=== PATIENT | female | born 1930 | race Caucasian/White ===

== ENCOUNTER → 2017-09-20 | Outpatient (CLI) | payer MEDICARE, BC, OTHER ==
[~2017-09-20] MED LIST: ARIMIDEX PO; ASPIR 8181 MG PO; ATENOLOL 100MG100 MG PO; CITRACAL SOFT1 EACH PO; COZAAR 25 MG TA25 M1 PO; DICLOFENAC SODI25 MG PO; LOVASTATIN 20 M20 MG PO; TUMS CHEWA500 MG/11 PO; ULORIC40 MG PO; VICODIN ES TAB1 EACH PO
== END ==
LOC: M.RAD 13:30
DX: Z12.31 Encounter for screening mammogram for malignant neoplasm of breast (principal); C50.912 Malignant neoplasm of unspecified site of left female breast

== ENCOUNTER 2017-09-28 22:32 | Observation (INO) | payer MEDICARE, BC, OTHER ==
[~2017-09-28] VITALS: Ht 162.6 cm; Wt 86.2 kg
[~2017-09-28 22:32] MED LIST changes: -ARIMIDEX PO; -ASPIR 8181 MG PO; -ATENOLOL 100MG100 MG PO; -CITRACAL SOFT1 EACH PO; -COZAAR 25 MG TA25 M1 PO; -DICLOFENAC SODI25 MG PO; -LOVASTATIN 20 M20 MG PO; -ULORIC40 MG PO
[2017-09-28 22:36] VITALS: BP 187/91
[2017-09-28] MEDS ORDERED: COZAAR 25 MG TA25 M1 PO (22:43)
[2017-09-28] MEDS ORDERED: ULORIC40 MG PO (22:43)
[2017-09-28] MEDS ORDERED: ATENOLOL 100MG100 MG PO (22:43)
[2017-09-28] MEDS ORDERED: DICLOFENAC SODI25 MG PO (22:43)
[2017-09-28] MEDS ORDERED: LOVASTATIN 20 M20 MG PO (22:44)
[2017-09-28] MEDS ORDERED: ASPIR 8181 MG PO (22:44)
[2017-09-28] MEDS ORDERED: CITRACAL SOFT1 EACH PO (22:44)
[2017-09-28] MEDS ORDERED: ARIMIDEX PO (22:44)
[2017-09-28 23:00] LABS: ABSOLUTE BASOPHILS 0.1 thou/uL (0.0-0.2); ABSOLUTE EOSINOPHILS 0.2 thou/uL (0.0-0.7); ABSOLUTE LYMPHOCYTES 2.4 thou/uL (0.8-5.3); ABSOLUTE MONOCYTES 0.7 thou/uL (0.0-1.2); ABSOLUTE NEUTROPHILS 4.6 thou/uL (1.6-8.1); BASOPHILS 1.1 %; HEMATOCRIT 39.7 % (37.0-47.0); HEMOGLOBIN 13.3 gm/dL (12.0-15.0); MCH 34.9 pg (26.0-34.0); MCHC 33.4 g/dL (28.0-37.0); MCV 104.5 fL (80.0-100.0); MONOCYTES 8.9 %; MPV 7.3 fl. (7.2-11.1); NUCLEATED RBCS 0 /100WBC; PLATELET COUNT* 203 thou/uL (150-400); RDW-CV 13.5 % (10.5-14.5); WBC 8.1 thou/uL (4.0-11.0)
[2017-09-28 23:18] LABS: ANION GAP 14 mmol/L (7-16); BUN 51 mg/dL (7-18); CHLORIDE 100 mmol/L (98-107); CO2 24 mmol/L (21-32); CREATININE 2.1 mg/dL (0.6-1.3); GLUCOSE 122 mg/dL (70-99); POTASSIUM 3.7 mmol/L (3.5-5.1); SODIUM 138 mmol/L (136-145)
[2017-09-28 23:25] LABS: ALBUMIN 3.6 g/dL (3.4-5.0); ALKALINE PHOSPHATASE 50 U/L (46-116); MAGNESIUM 2.1 mg/dL (1.8-2.4); SGOT 20 U/L (15-37); SGPT 15 U/L (30-65); TOTAL BILIRUBIN 0.5 mg/dL (<0.1-1.0); TOTAL PROTEIN 7.7 g/dL (6.4-8.2); TROPONIN-I LEVEL <0.06 ng/mL (<0.06)
[2017-09-29] VITALS (7 sets, daily range): BP systolic 128–179; BP diastolic 44–100
[2017-09-29 00:36] LABS: URINE BILIRUBIN NEGATIVE (Negative); URINE BLOOD NEGATIVE (Negative); URINE CLARITY CLEAR; URINE COLOR YELLOW; URINE GLUCOSE-RANDOM NEGATIVE (Negative); URINE KETONES NEGATIVE (Negative); URINE LEUKOCYTES-REFLEX TRACE (Negative); URINE NITRITE-REFLEX NEGATIVE (Negative); URINE PROTEIN NEGATIVE (Negative); URINE SPECIFIC GRAVITY 1.015 (1.005-1.030); URINE UROBILINOGEN 0.2 E.U./dl (0.2-1.0)
[2017-09-29 01:05] LABS: BACTERIA-REFLEX >30 Many /HPF (None Seen); CRYSTALS None Seen /LPF (None Seen); FINE GRANULAR CASTS 0-3 Few /LPF (None Seen); HYALINE CASTS 0-3 Few /LPF (None Seen); MUCUS 4-6 Moderate strn/LPF (None Seen); SQUAMOUS 0-3 Few /LPF (0-3); URINE RBC 3-10 Few /HPF (0-2); WBC CLUMPS Few (None Seen)
--- NOTE | 2017-09-29 02:25 | NUR ---
PATIENT RESTING IN BED, ADMITTED FOR SYNCOPE AND DIZZINESS. ADMITTED TO HAVING A COUPLE OF ETOH DRINKS AND NOT DRINKING MUCH WATER. PATIENT WAS OUTSIDE FOR A BBQ. BPS ELEVATED. IVF STARTED. DENIES PAIN OR DISCOMFORT.
--- NOTE | 2017-09-29 06:25 | NUR ---
PATIENT HAS SLEPT MOST OF THE NIGHT. UP TO THE BR WITH SBA. DENIES DIZZINESS, PAIN OR SOA. SR ON THE MONITOR. CONT. WITH PLAN OF CARE AT THIS TIME.
--- NOTE | 2017-09-29 08:48 | NUR ---
ASSUMED PT. CARE AND RECEIVED REPORT AT 0730. PT A/OX4, VSS, MONITOR ON TRACING TRIGEMENY 1ST. PT. DENIES CURRENT PAIN/SOB. ON RA @ 97%. FULL ASSESSMENT COMPLETED, REFER TO CHARTING. PT. DENIES ANY NAUSEA/DIZZINESS THIS MORNING. NPO FOR CV CONSULT, PT. STATES UNDERSTANDING. FALL PRECAUTIONSIN PLACE, WILL CONTINUE WITH PLAN OF CARE.
--- NOTE | 2017-09-29 10:24 | EKG ---
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 : 1930 Requested By: Janie Josue Order Number: [id number] MD: Artem Jack Measurements Intervals [place] Rate: 82 P: 88 PA: 276 QRS: -37 QRSD: 109 T: 14 QT: 464 QTc: 542 Interpretive Statements Sinus rhythm Ventricular bigeminy Prolonged PA interval Prominent P waves, nondiagnostic Inferior infarct, old Anteroseptal infarct, age indeterminate Compared to ECG 10/01/2009 11:24:06 First degree AV block now present Incomplete right bundle-branch block no longer present Myocardial infarct finding still present Electronically Signed On 09-29-2017 10:24:29 CDT by Artem Jack [email or web address] <ELECTRONICALLY SIGNED> By: Artem Jack MD, [facility] 09/29/17 1024 [id number] Artem Jack MD, [facility] /EPI
--- NOTE | 2017-09-29 10:35 | CON ---
[address] [address] CONSULTATION Name: YORDAN WYNN Room: [address] Viola#: [id number] Admission: 09/29/17 Attend Phys: Melly Interiano Discharge: Date of : 32 Report #: [id number] THIS REPORT FOR: //name// CC: Cleveland Pedroza DATE OF SERVICE: 09/29/2017 REASON FOR CONSULTATION: Syncope. HISTORY OF PRESENT ILLNESS: The patient is an 87-year-old female who was sitting in a chair last evening watching fireworks and then had a syncopal episode, which was followed with nausea and emesis. She presented to the Emergency Room in sinus rhythm with bigeminy and PVCs. This has never really happened before. She denied prodrome symptoms of palpitations, chest discomfort or chest tightness. She denies edema or weight loss or weight gain. She denies febrile illness. Overnight on telemetry, her vital signs have been stable and she has not had any arrhythmias. This morning, her blood pressure is elevated. She denies headaches or blurry vision. This has happened before, but not quite as severe. PAST MEDICAL HISTORY: She has a past medical history of hypertension, hyperlipidemia and cardiac murmur. She is followed by Dr. Cleveland Lemos. ALLERGIES: SHE HAS ALLERGIES TO ALLOPURINOL. HOME MEDICATIONS: Include atenolol 100 mg daily, losartan 25 mg daily, lovastatin 20 mg daily, aspirin and Arimidex. PAST SURGICAL HISTORY: Prior mastectomy. REVIEW OF SYSTEMS: PVD: Denies any history of strokes or TIAs. NEUROLOGIC: Denies headaches, blurry vision or seizures. No numbness in her face, visual changes or slurred speech. CARDIOVASCULAR: No palpitations and no chest discomfort. Positive dyspnea on exertion. No orthopnea and no PND. Positive murmur. ENDOCRINE: [place] [address] CONSULTATION Name: YORDAN WYNN Room: [address] Viola#: [id number] Admission: 09/29/17 Attend Phys: Melly Interiano Discharge: Date of : 31 Report #: [id number] GASTROINTESTINAL: No nausea or vomiting, ulcers, hematemesis or melena. RENAL: No history of kidney failure. HEMATOLOGIC: No history anemia or bleeding disorders. ALLERGIES: SHE HAS ALLERGIES TO ALLOPURINOL. Denies aspirin or contrast allergies. PSYCHIATRIC: No depression or anxiety. SKIN: No rashes. EYES: She does use glasses. EARS, NOSE, THROAT AND MOUTH: Positive decreased hearing. SOCIAL HISTORY: She is . She has one alcoholic beverage per day. PHYSICAL EXAMINATION: VITAL SIGNS: Blood pressure this morning is 179/74, respiratory rate is 16 and pulse is 64. GENERAL: This is a pleasant elderly female. She is alert, oriented, in no apparent distress. NECK: Supple. No jugular venous distention. Carotid upstrokes are normal. I cannot hear bruits. CARDIOVASCULAR: Regular. Faint systolic murmur. There is no rub or gallop. LUNGS: Clear to auscultation. ABDOMEN: Soft and nontender. EXTREMITIES: There is no peripheral edema. Radial pulses are symmetric and equal. NEUROLOGIC: There are no focal deficits. LABORATORY DATA: Electrocardiogram demonstrates a sinus rhythm, frequent PVCs, poor R-wave progression, incomplete right bundle branch block and a left anterior fascicular block. Hemoglobin level is 13.3. Sodium is 138, potassium 3.7, chloride 100, CO2 is 24, BUN is 51 and creatinine is 2.1. GFR is 22. AST is 20 and ALT is 15. Troponin I is 0.06. CK is 37. A CT of the brain showed no acute intracranial process. IMPRESSION: 1. Syncope. I suspect this is probably multifactorial. She may have been bradycardic and/or had a frequent run of PVCs in association with extracellular volume depletion from the heat outside and she does present azotemic. I will continue with telemetry monitoring. We will check an echocardiogram to assess LV function. Neurologically, she seems back to baseline. 2. Extracellular volume depletion. I will continue with IV fluids. 3. Murmur. I have arranged for an echocardiogram. 4. Bradycardia. I will reduce the dosage of her beta zoya, but using more [facility] [address] [place] [address] CONSULTATION Name: YORDAN WYNN Room: [address] Jamil Rod#: [id number] Admission: 09/29/17 Attend Phys: Melly Interiano Discharge: Date of : 32 Report #: [id number] peripheral acting blood pressure drug with her losartan. However, we will need to monitor renal function. <ELECTRONICALLY SIGNED> By: Artem Jack MD, FACC 09/29/17 1035 0954 [id number] Jack MD, FAC /nt
--- NOTE | 2017-09-29 12:18 | NUR ---
Pt having EEG done, will f/u later
--- NOTE | 2017-09-29 13:22 | 2DMMODE ---
[place] [address] 2 D/M-MODE ECHOCARDIOGRAM Name: YORDAN WYNN Room: [address] Jamil Rod#: [id number] Admission: 09/29/17 Attend Phys: Blade Pedroza Discharge: Date of : 32 Date of Service: 09/29/17 1322 Report #: [id number] THIS REPORT FOR: //name// APPROVED REPORT Study performed: 09/29/2017 12:08:57 EXAM: Comprehensive 2D, Doppler, and color-flow Echocardiogram Patient Location: In-Patient Room #: 219 Status: routine BSA: 1.91 HR: 68 bpm BP: 179/74 mmHg Rhythm: NSR Other Information Study Quality: Good Indications CVA/TIA Syncope Echo Enhancing Agent Indication: Rule out Shunt Agent(s) / Amount(s) Used: Agitated Saline 10 cc 2D Dimensions LVEF(%): 60.10 (>50%) IVSd: 13.68 (7-11mm) LVOT Diam: 20.65 (18-24mm) LVDd: 42.45 mm PWd: 10.08 (7-11mm) Ascending Ao: 34.27 (22-36mm) LVDs: 28.98 (25-40mm) Aortic Root: 34.56 mm Fuller's LVEF: 60.10 % Volumes Left Atrial Volume (Systole) LA ESV Index: 43.50 mL/m2 Aortic Valve AoV Peak Milad.: 1.80 m/s AO Peak Gr.: 13.02 mmHg LVOT Max P.45 mmHg AO Mean Gr.: 7.35 mmHg LVOT Mean P.93 mmHg LVOT Max V: 0.93 m/[place] [address] 2 D/M-MODE ECHOCARDIOGRAM Name: YORDAN WYNN Room: [address] Jamil Rod#: [id number] Admission: 09/29/17 Attend Phys: Blade Pedroza Discharge: Date of : 32 Date of Service: 09/29/17 1322 Report #: [id number] AO V2 VTI: 41.70 cm LVOT Mean V: 0.65 m/s MARISSA (VTI): 1.84 cm2 LVOT V1 VTI: 22.94 cm Mitral Valve E/A Ratio: 0.99 MV Decel. Time: 159.54 ms MV E Max Milad.: 0.86 m/s MV PHT: 46.27 ms MVA (PHT): 4.76 cm2 TDI E/Lateral E': 9.56 E/Medial E': 10.75 Medial E' Milad.: 0.08 m/s Lateral E' Milad.: 0.09 m/s Pulmonary Valve PV Peak Milad.: 1.10 m/s PV Peak Gr.: 4.87 mmHg Tricuspid Valve RAP Estimate: 5.00 mmHg TR Peak Gr.: 39.72 mmHg RVSP: 44.72 mmHg PA Pressure: 44.72 mmHg Left Ventricle The left ventricle is normal size. There is normal LV segmental wall motion. There is normal left ventricular wall thickness. Left ventricular systolic function is normal. The left ventricular ejection fraction is within the normal range. LVEF is 55-60%. Grade I - abnormal relaxation pattern. Right Ventricle The right ventricle is normal size. The right ventricular systolic function is normal. Atria Left atrium is moderately dilated. Interatrial septum is intact without evidence of ASD or PFO. The right atrium size is normal. Aortic Valve Aortic valve leaflets are sclerotic with decreased opening. No aortic regurgitation is present. Mild to moderate aortic stenosis. Mitral Valve The mitral valve is normal in structure. Mild to moderate mitral regurgitation. No evidence [place] [address] 2 D/M-MODE ECHOCARDIOGRAM Name: YORDAN WYNN Room: [address] M.R.#: [id number] Admission: 09/29/17 Attend Phys: Blade Pedroza Discharge: Date of : 32 Date of Service: 09/29/17 1322 Report #: [id number] Tricuspid Valve The tricuspid valve is normal in structure. Trace tricuspid regurgitation. Mild pulmonary hypertension. Pulmonic Valve The pulmonary valve is normal in structure. There is no pulmonic valvular regurgitation. Great Vessels The aortic root is normal in size. IVC is normal in size and collapses with >50% inspiration Pericardium There is no pericardial effusion. <Conclusion> LVEF is 55-60%. There is normal LV segmental wall motion. Left atrium is moderately dilated. Grade I - abnormal relaxation pattern. Aortic valve leaflets are sclerotic with decreased opening. Mild to moderate aortic stenosis. No aortic regurgitation is present. Mild to moderate mitral regurgitation. <ELECTRONICALLY SIGNED> By: Artem Jack MD, FACC 09/29/17 132 21 21 Artem Jack MD, FACC /INF
--- NOTE | 2017-09-29 14:09 | NUR ---
Pt is A&O. Resides at home alone. Independent with ADLS, continues to cook and clean. Pt does not drive. Dtr takes Pt to appts and to run errands. Pt uses a cane when out in the community. No hx of HH or SNF. Pt stated that she thinks she will dc to home tomorrow. Following for disposition.
--- NOTE | 2017-09-29 19:01 | NUR ---
PT. STABLE THROUGH OUT SHIFT. NO C/O OF DIZZINESS/NAUSEA TODAY. ALL TESTING COMPLETED PER ORDERS. PT. REMAINS IN IVF'S AND TOLERATING WELL. ANTICIPATE DC TOMORROW. HOURLY ROUNDING COMPLETED THROUGH OUT THE DAY FOR PT. SAFETY.
[2017-09-30 00:30] VITALS: BP 139/59
--- NOTE | 2017-09-30 01:25 | NUR ---
PATIENT RESTING IN BED. CONT. IVF WITHOUT DIFFICULTIES. DENIES PAIN, SOA, OR DISCOMFORT. UP WITH SBA TO THE BR. BED IN LOW POSITION, CALL LIGHT IN REACH. BED ALARM ON. PATIENT CALLS NURSE BEFORE GETTING UP. WILL PROCEED WITH CURRENT PLAN OF CARE AT THIS TIME.
[2017-09-30 04:15] VITALS: BP 146/59
[2017-09-30 04:52] LABS: ABSOLUTE BASOPHILS 0.1 thou/uL (0.0-0.2); ABSOLUTE EOSINOPHILS 0.4 thou/uL (0.0-0.7); ABSOLUTE LYMPHOCYTES 1.9 thou/uL (0.8-5.3); ABSOLUTE MONOCYTES 0.6 thou/uL (0.0-1.2); ABSOLUTE NEUTROPHILS 3.1 thou/uL (1.6-8.1); BASOPHILS 1.2 %; EOSINOPHILS 6.5 %; HEMATOCRIT 33.8 % (37.0-47.0); MCH 35.2 pg (26.0-34.0); MCHC 33.3 g/dL (28.0-37.0); MCV 105.5 fL (80.0-100.0); MONOCYTES 10.3 %; MPV 7.8 fl. (7.2-11.1); NUCLEATED RBCS 0 /100WBC; PLATELET COUNT* 150 thou/uL (150-400); RDW-CV 13.9 % (10.5-14.5)
[2017-09-30 04:58] LABS: HEMOGLOBIN 11.3 gm/dL (12.0-15.0)
[2017-09-30 05:10] LABS: CALCIUM 8.4 mg/dL (8.5-10.1); CREATININE 1.6 mg/dL (0.6-1.3); POTASSIUM 3.5 mmol/L (3.5-5.1)
[2017-09-30 08:00] VITALS: BP 184/77
--- NOTE | 2017-09-30 11:00 | NUR ---
VSS, ASSUMED CARE IN THE AM, ASSESSMENT PERFORMED AND CHARTED, FALL PRECAUTIONS IN PLACE AND CALL LIGHT IN REACH, PT IS UP WITH ONE AND CANE, PT IS TRACING BIGEMINEY C 1D BLOCK ON THE MONITOR, PT DEINES ANY PAIN, PT GOAL IS TO D/C TO HOME ON DAY OF CARE. SHE IS A&O4, AT THIS TIME 1300 I HAVE RECIEVED AND COMPLETED D/C ORDERS FILLED OUT D/C INSTRUCTIONS PROVITED D/C EDUCATIONS AND TOOK OUT IV AND TOOK OFF TELE MONITOR. DENIES ANY QUESTIONS OR CONCERNS AT TIME OF D/C. PT WALKED OUT VIA WHEEL CHAIR BY STAFF TO CAR. HOURLY ROUNDS COMPLETED.
[2017-09-30 12:28] VITALS: BP 158/61
--- NOTE | 2017-10-03 09:40 | EEG ---
[address] [address] EEG STUDY REPORT Name: KINGSLEYYORDAN [address] [id number] Admission: 09/29/17 Attend Phys: Melly Interiano Discharge: 09/30/17 Date of : 31 Report #: [id number] THIS REPORT FOR: //name// CC: Cleveland Pedroza DATE OF SERVICE: 09/29/2017 This patient is being evaluated for syncope. EEG was done by placing the electrode by standard 10-20 system of electrode placement. Both referential and sequential montages were used for recording. Background activity in this patient's EEG is about 10 Hz and 40 microvolts. This is a symmetrical activity. The patient went to sleep that is associated with bilaterally symmetrical sleep spindle and vertex sharp waves. Throughout the record, no active epileptiform activity was noticed. IMPRESSION: This patient's EEG is within normal limit. Thank you very much for this referral. <ELECTRONICALLY SIGNED> By: Juan Galindo MD 10/03/17 0940 1331 [id number] Galindo MD /nt
--- NOTE | 2017-10-03 09:40 | CON ---
[address] [address] CONSULTATION Name: YORDAN WYNN Room: [address] Jamil Rod#: [id number] Admission: 09/29/17 Attend Phys: Melly Interiano Discharge: 09/30/17 Date of : 31 Report #: [id number] THIS REPORT FOR: //name// CC: Cleveland Pedroza DATE OF SERVICE: 09/29/2017 HISTORY OF PRESENT ILLNESS: This is an 87-year-old female patient who was evaluated by me to determine any neurological etiology for the patient's syncope. The patient was sitting and she was not trying to stand up, she felt that she broke up in a sweat and then she passed out. She was out only just for a few seconds. She was a little confused when she came out of it and may have had some speech disturbances. She had no associated headache. Symptoms came spontaneously and then resolved spontaneously. She has no history of symptom like this before. REVIEW OF SYSTEMS: Indicate she does have some hypertension. She takes medications for it. She does not check her blood pressure very often, but she does not think her blood pressure goes too low any time. She has a history of macular degeneration, hysterectomy, gout. A 14-point review of systems is carried out and presently she is not complaining of any new eye, ENT, respiratory, GI, , musculoskeletal, constitutional, dermatological, hematological, psychiatric, throat, allergic symptom associated with present symptomatology. She did have some cold sweats and she is going to be seen by Cardiology. PAST MEDICAL HISTORY: Negative for this kind of spell. FAMILY HISTORY: Negative for congenital epilepsy. SOCIAL HISTORY: She drinks about 1 alcoholic drink every night. She has done it for a long time. She said she may have taken 1-1/2 alcoholic drink. She does not use tobacco. PHYSICAL EXAMINATION: GENERAL: Indicate she is alert, responsive, oriented. NEUROLOGIC: Her speech, concentration, fund of knowledge and memory is at her baseline. Cranial nerve examination 212 looks unremarkable. She has symmetrical strength, sensation, reflexes and tone in all 4 extremities. There are no cerebellar signs. No papilledema. There is no carotid bruit. APPEARANCE: She is a well-developed individual who does not have any dysmorphic features of eyes, ears and face. Her vision and hearing looks adequate. She has no thyroid mass. EXTREMITIES: Her pulses are palpable. She has no edema, cyanosis or jaundice. VITAL SIGNS: Blood pressure is 158/64; when she came in[place] [address] CONSULTATION Name: YORDAN WYNN Zina Room: [address] Jamil Rod#: [id number] Admission: 09/29/17 Attend Phys: Melly Interiano Discharge: 09/30/17 Date of : 31 Report #: [id number] Respirations 16, pulse is 70, temperature is 97.3. LABORATORY DATA: Her white count is 8.1. GFR is only 22. She did have a CT scan of the head which was unremarkable. IMPRESSION: It is unlikely that there is any neurological etiology for the patient's symptoms. Because of the swelling, I think cardiac cause need to be excluded. She does have renal dysfunction, but I do not know whether it is new or not and where does it fit in there. However, the episode occurred when she was sitting and she had a question of speech difficulty and we will do some workup in this regard. I discussed that aspect with her and she wants to have this workup. RECOMMENDATIONS: 1. MRI of the brain. 2. MRA of the head and neck. 3. EEG. 4. TSH, vitamin B12. 5. We will suggest mainly working up any other etiologies and a systemic etiology for the patient's symptom. Thank you very much for this referral and if you have any question, please feel free to contact me. <ELECTRONICALLY SIGNED> By: Juan Galindo MD 10/03/17 0940 0836 0928Juan Galindo MD /nt
== END 2017-09-30 13:36 | disposition home or self-care (01) ==
LOC: M.ERS 22:32 → M.2W 09-29 → M.TBA-ER 09-29 → M.2W 09-29 01:23
PROVIDERS: Internal Medicine; Personal Emergency Response Attendant; ADMIT Internal Medicine
DX: R55 Syncope and collapse (principal); N17.9 Acute kidney failure, unspecified; R00.8 Other abnormalities of heart beat; E86.0 Dehydration; M10.9 Gout, unspecified; I10 Essential (primary) hypertension; M06.9 Rheumatoid arthritis, unspecified; R01.1 Cardiac murmur, unspecified; E86.9 Volume depletion, unspecified; R00.1 Bradycardia, unspecified; E78.00 Pure hypercholesterolemia, unspecified; Z90.89 Acquired absence of other organs; Z72.89 Other problems related to lifestyle

== ENCOUNTER → 2018-07-17 | Outpatient (CLI) | payer MEDICARE, BC, OTHER ==
[~2018-07-17] MED LIST changes: +ARIMIDEX PO; +ASPIR 8181 MG PO; +ATENOLOL 100MG100 MG PO; +CITRACAL SOFT1 EACH PO; +COZAAR 25 MG TA25 M1 PO; +DICLOFENAC SODI25 MG PO; +LOVASTATIN 20 M20 MG PO; +ULORIC40 MG PO
--- NOTE | 2018-07-17 16:16 | 2DMMODE ---
[place] [address] 2 D/M-MODE ECHOCARDIOGRAM Name: YORDAN WYNN Room: [facility]#: [id number] Admission: 07/17/18 Attend Phys: Artem Jack, Discharge: Date of : 32 Date of Service: 07/17/18 1616 Report #: [id number] THIS REPORT FOR: //name// APPROVED REPORT Study performed: 07/17/2018 14:17:55 EXAM: Comprehensive 2D, Doppler, and color-flow Echocardiogram Patient Location: Out-Patient BSA: 1.88 HR: 68 bpm BP: 120/60 mmHg Other Information Study Quality: Good Indications Congestive Heart Failure Atrial Fibrillation 2D Dimensions IVSd: 11.35 (7-11mm) LVOT Diam: 20.15 (18-24mm) LVDd: 44.11 mm PWd: 10.64 (7-11mm) Ascending Ao: 31.16 (22-36mm) LVDs: 34.65 (25-40mm) Aortic Root: 30.95 mm Volumes Left Atrial Volume (Systole) LA ESV Index: 41.10 mL/m2 Aortic Valve AoV Peak Milad.: 1.77 m/s AO Peak Gr.: 12.48 mmHg LVOT Max P.74 mmHg AO Mean Gr.: 6.87 mmHg LVOT Mean P.98 mmHg LVOT Max V: 0.66 m/s AO V2 VTI: 35.12 cm LVOT Mean V: 0.47 m/s MARISSA (VTI): 1.06 cm2 LVOT V1 VTI: 11.67 cm Mitral Valve MV Decel. Time: 116.03 ms MV E Max Milad.: 1.10 m/s MV PHT: 33.65 ms MVA (PHT): 6.54 cm2 [place] [address] 2 D/M-MODE ECHOCARDIOGRAM Name: YORDAN WYNN Room: [facility]#: [id number] Admission: 07/17/18 Attend Phys: Artem Jack, Discharge: Date of : 32 Date of Service: 07/17/18 1616 Report #: [id number] TDI E/Lateral E': 12.22 E/Medial E': 9.17 Medial E' Milad.: 0.12 m/s Lateral E' Milad.: 0.09 m/s Pulmonary Valve PV Peak Milad.: 0.96 m/s PV Peak Gr.: 3.66 mmHg Tricuspid Valve RAP Estimate: 5.00 mmHg TR Peak Gr.: 34.99 mmHg RVSP: 39.99 mmHg PA Pressure: 39.99 mmHg Left Ventricle The left ventricle is normal size. There is normal LV segmental wall motion. There is normal left ventricular wall thickness. Left ventricular systolic function is normal. The left ventricular ejection fraction is within the normal range. LVEF is 50-55%. The left ventricular diastolic function is normal. Right Ventricle Right ventricle is mildly dilated. The right ventricular systolic function is normal. Atria Left atrium is mildly dilated. Right atrium is mildly dilated. Aortic Valve Aortic valve is mildly calcified. No aortic regurgitation is present. Mild aortic stenosis. Mitral Valve Mitral valve leaflets are mildly thickened. Mild mitral regurgitation. No evidence of mitral valve stenosis. Tricuspid Valve The tricuspid valve is normal in structure. Mild tricuspid regurgitation. estimate pa pressure 45 mm Hg Pulmonic Valve Pulmonic valve is not well visualized. Mild pulmonic regurgitation. [place] [address] 2 D/M-MODE ECHOCARDIOGRAM Name: YORDAN WYNN Room: [facility]#: [id number] Admission: 07/17/18 Attend Phys: Artem Jack, Discharge: Date of : 32 Date of Service: 07/17/18 1616 Report #: [id number] The aortic root is normal in size. IVC is normal in size and collapses >50% with inspiration. Pericardium There is no pericardial effusion. <Conclusion> LVEF is 50-55%. Right ventricle is mildly dilated. Left atrium is mildly dilated. Right atrium is mildly dilated. Aortic valve is mildly calcified. Mild aortic stenosis. Mild mitral regurgitation. Mild tricuspid regurgitation. estimate pa pressure 45 mm Hg <ELECTRONICALLY SIGNED> By: Abdulaziz Horn MD, FACC 07/17/18 1616 161 161 Abdulaziz Horn MD, FACC /INF
== END ==
LOC: M.CRD 13:59
DX: I08.8 Other rheumatic multiple valve diseases (principal); I48.0 Paroxysmal atrial fibrillation

== ENCOUNTER → 2018-07-19 | Outpatient (CLI) | payer MEDICARE, BC, OTHER ==
[2018-07-19 14:43] LABS: CALCIUM 9.6 mg/dL (8.5-10.1); CREATININE 1.9 mg/dL (0.6-1.3); POTASSIUM 4.2 mmol/L (3.5-5.1)
== END ==
LOC: M.LAB 14:00
PROVIDERS: Registered Nurse
DX: I48.0 Paroxysmal atrial fibrillation (principal)

== ENCOUNTER → 2018-10-12 | Outpatient (CLI) | payer MEDICARE, BC, OTHER | LOC: M.RAD 10-11 14:50 | DX: Z12.31 Encounter for screening mammogram for malignant neoplasm of breast (principal) ==

== ENCOUNTER → 2020-10-13 | Outpatient (CLI) | payer MEDICARE, BC, OTHER | LOC: M.RAD 12:58 | PROVIDERS: ATTEND Internal Medicine | DX: Z12.31 Encounter for screening mammogram for malignant neoplasm of breast (principal); I50.33 Acute on chronic diastolic (congestive) heart failure; I51.7 Cardiomegaly; J98.11 Atelectasis; N64.89 Other specified disorders of breast ==